=== PATIENT | male | born 1975 | race Caucasian/White ===

== ENCOUNTER → 2017-09-11 | Outpatient (CLI) | payer OTHER ==
--- NOTE | 2017-09-11 18:52 | Diagnostic Imaging Report ---
PROCEDURE: CT CHEST WITHOUT CONTRAST CT scan of the chest WITHOUT intravenous contrast, using standard protocol. TECHNIQUE: The chest was scanned utilizing a multidetector helical scanner from the apex to the level of the adrenal glands. No IV contrast was administered per protocol/per physician request. Coronal and sagittal multiplanar reformations were obtained. DLP: 532.14 mGy-cm COMPARISON: CT dated 10/01/16 INDICATIONS: FOLLOW UP OF LUNG NODULES FINDINGS: Lines/tubes: None. Lungs and Airways: The airways are normal with no focal abnormality demonstrated. Stable 4 mm subpleural left apical nodule (series 3, image 14). Stable 4 mm right upper lobe nodule (3/30). Stable 5 mm right upper lobe nodule (3/44). Stable 4 mm right middle lobe nodule (3/66). Unchanged posterior right base calcified granuloma. Stable subpleural right base 3 mm nodule (3/85). Stable 5 mm lingular nodule (3/63). Pleura: The pleural spaces are clear. Heart and mediastinum: The thyroid gland is normal. No significant mediastinal, hilar or axillary lymphadenopathy is seen. The heart and pericardium are within normal limits. Soft tissues: Normal. Abdomen: Limited views of the upper abdomen show partially imaged 2.9 cm left renal cyst and a subcentimeter left midpole renal calculus. Bones: The visualized bony thorax is within normal limits. IMPRESSION: Stable lung nodules when compared to CT dated 10/01/16. Recommend followup in 18-24 months to ensure stability. Dictated by: Oswald Kaiser M.D. on 09/11/2017 at 18:51 Electronically approved by: Oswald Kaiser M.D. on 09/11/2017 at 18:51
== END ==
LOC: CT 17:26
PROVIDERS: ATTEND Internal Medicine
DX: R91.8 Other nonspecific abnormal finding of lung field (principal)
CPT/HCPCS: 71250